=== PATIENT | male | born 1975 | race Caucasian/White ===

== ENCOUNTER 2019-09-27 02:33 | Emergency (ER) | payer OTHER ==
[~2019-09-27] VITALS: Ht 175.3 cm; Wt 81.6 kg
[2019-09-27 02:40] VITALS: BP 154/100
[2019-09-27] MEDS ORDERED: NACL 0.9% 1,000 ML IV ONE (02:45)
[2019-09-27] MEDS ORDERED: LORazepam 2 MG/ML VIAL IVP ONE (02:45)
[2019-09-27] MEDS ORDERED: ONDANSETRON 4 MG/2 ML VIAL IVP ONE (02:45)
--- NOTE | 2019-09-27 02:55 | NUR ---
44 YO M HERVEA C/C OF ANXIETY DUE TO DOING METH. PT PRESENTS WITH NAUSEA AND VOMITING. PT STATES THAT THEY HAVE BEEN USING METH SINCE 15 YEARS OLD AND HAS NOT HAD A REACTION LIKE THIS BEFORE. PT STATES THAT HE "FELT LIKE HE WAS GOING TO " SO HE CALLED THE AMBULANCE. PT PLACED ON [employer] AND STARTED ON 2L NC. SIDE RAILS X2. RX: XANAX MED HX: HIV NKA
[2019-09-27 03:07] LABS: BASOPHILS % (AUTO) 0.7 % (0.0-2.0); EOSINOPHILS # (AUTO) 0.1 K/uL (0-0.4); EOSINOPHILS % (AUTO) 0.9 % (0.0-4.0); HEMATOCRIT 45.8 % (36-52); HEMOGLOBIN 15.3 g/dL (12.0-18.0); LYMPHOCYTES # (AUTO) 1.2 K/uL (2.0-11.5); LYMPHOCYTES % (AUTO) 19.6 % (20.5-51.1); MEAN CORPUSCULAR HEMOGLOBIN 32 pg (27-31); MEAN CORPUSCULAR HGB CONC 33 g/dL (33-37); MEAN CORPUSCULAR VOLUME 96.8 fL (80-94); MONOCYTES # (AUTO) 0.5 K/uL (0.8-1.0); NEUTROPHILS # (AUTO) 4.3 K/uL (1.8-7.7); NEUTROPHILS % (AUTO) 70.8 % (42.2-75.2); PLATELET COUNT (AUTO) 268 K/uL (140-450); RED BLOOD CELL COUNT(AUTO) 4.73 MIL/uL (4.20-6.10); RED CELL DISTRIBUTION WIDTH 13.4 % (11.6-13.7); WHITE BLOOD COUNT (AUTO) 6.1 K/uL (4.8-10.8)
[2019-09-27 03:22] LABS: ALBUMIN 3.8 g/dL (3.4-5.0); ANION GAP 12.9 (8-16); ASPARTATE AMINOTRANSFERASE 23 U/L (15-37); CARBON DIOXIDE 29.9 mmol/L (21-32); CHLORIDE 107 mmol/L (98-107); CREATININE 1.2 mg/dL (0.6-1.3); GFR ARICAN-AMERICAN 85 mL/min (>90); GLUCOSE 96 mg/dL (74-106); POTASSIUM 3.8 mmol/L (3.5-5.1); SODIUM SERUM 146 mmol/L (136-145); TOTAL BILIRUBIN 0.3 mg/dL (0.0-1.0); UREA NITROGEN, BLOOD 12 mg/dL (7-18)
[2019-09-27 03:24] LABS: ACETAMINOPHEN < 0.5 ug/ml (10-30); SALICYLATE < 2.8 mg/dL (2.8-20.0)
--- NOTE | 2019-09-27 03:40 | NUR ---
ER AT [facility] EVALUATING PT. PT DOES NOT APPEAR VISIBLY DISTRESSED. RESTING IN BED. SIDE RAILS X2.
[2019-09-27 04:39] VITALS: BP 142/106
--- NOTE | 2019-09-27 04:40 | NUR ---
Patient discharged with v/s stable. Written and verbal after care instructions given and explained. Patient verbalized understanding. Ambulatory with steady gait. All questions addressed prior to discharge. Advised to follow up with PMD.
--- NOTE | 2019-09-28 11:23 | NUR ---
Late entry. Confirmed with RN that 0.9 NS IV completed at 0400
== END 2019-09-27 04:40 | disposition home or self-care (01) ==
LOC: MED 02:33
DX: F15.10 Other stimulant abuse, uncomplicated (principal); F17.210 Nicotine dependence, cigarettes, uncomplicated
CPT/HCPCS: 36415; 80053; 85025; 93005; 96361; 96374; 96375; 99284; G0480; G0482; J2060; J2405; J7030; 99283

== ENCOUNTER 2021-01-12 20:27 | Emergency (ER) | payer OTHER ==
[~2021-01-12] VITALS: Ht 177.8 cm; Wt 81.6 kg
[2021-01-12] MEDS ORDERED: LORazepam 1 MG TAB PO ONE (20:55)
[2021-01-12 21:25] VITALS: BP 118/79
[2021-01-12 23:12] VITALS: BP 120/82
== END 2021-01-12 23:12 | disposition home or self-care (01) ==
LOC: MED 20:27
DX: F41.9 Anxiety disorder, unspecified (principal); F15.10 Other stimulant abuse, uncomplicated; F17.210 Nicotine dependence, cigarettes, uncomplicated
CPT/HCPCS: 99283

== ENCOUNTER 2023-01-28 12:14 | Emergency (ER) | payer OTHER ==
[~2023-01-28] VITALS: Ht 177.8 cm; Wt 110.2 kg
[2023-01-28 13:21] VITALS: BP 144/115; PULSE 100; RESP 20; TEMP 98.4; O2SAT 100
[2023-01-28] MEDS ORDERED: FLUORESCEIN OPTH STRIP 1 MG OP ONE (14:30)
[2023-01-28] MEDS ORDERED: TETRACAINE HCL/PF 0.5% OPTH 4 ML BTL OP ONE (14:30)
[2023-01-28 15:47] VITALS: BP 140/109; PULSE 89; RESP 18; TEMP 98.4; O2SAT 100
== END 2023-01-28 15:47 | disposition home or self-care (01) ==
LOC: MED 12:14
DX: H57.11 Ocular pain, right eye (principal); Z79.899 Other long term (current) drug therapy
CPT/HCPCS: 99282